=== PATIENT | male | born 1985 | race Caucasian/White ===

== ENCOUNTER 2020-07-20 18:49 | Inpatient (IN) | payer OTHER ==
[~2020-07-20 18:49] MED LIST: Iopamidol-370 76% 500 ML 1 ML ONE
[2020-07-20] MEDS ORDERED: Ondansetron PF 4 MG/2 ML Vial ONE (19:06)
[2020-07-20] MEDS ORDERED: Fentanyl 100 MCG/2 ML VIAL ONE ×2 (19:06→19:46)
[2020-07-20 19:18] LABS: #Basophils 0.1 thou/uL (0.0-0.2); #Eosinphils 0.3 thou/uL (0.0-0.7); #Lymphocytes 2.8 thou/uL (1.20-3.40); #Monocytes 1.1 thou/uL (0.11-0.59); #Neutrophils 14.4 thou/uL (1.40-6.50); %Basophils 0.4 % (0.0-1.0); %Eosinophils 1.8 % (0.0-10.0); %Lymphocytes 14.8 % (21.0-51.0); %Monocytes 5.9 % (0.0-10.0); %Neutrophils 77.1 % (42.0-75.0); Hemoglobin 17.5 g/dL (14.0-18.0); Mean Corpuscular HGB CONC 35.6 g/dL (32.0-36.0); Mean Corpuscular Hemoglobin 32.9 pg (27.0-31.0); Mean Corpuscular Volume 92.5 fL (78.0-98.0); Mean Platelet Volume 7.7 fL (7.4-10.4); Platelet Count 293 thou/uL (130-400); RBC Distribution Width 11.2 % (11.5-14.5); Red Blood Cell (RBC) Count 5.33 mill/uL (4.70-6.10); White Blood Cell (WBC) Count 18.7 thou/uL (4.8-10.8)
--- NOTE | 2020-07-20 19:33 | CT ---
CT Brain WO Con History: Reason For Study Comparison: CT brain 2016 Findings: No acute hemorrhage or infarct. No midline shift or mass effect. Ventricular size and extra -axial CSF spaces are normal. Mild mucosal thickening of the maxillary sinuses. Impression: No acute intracranial abnormality.
[2020-07-20 19:34] LABS: ALT (SGPT) 29 U/L (8-55); AST (SGOT) 36 U/L (5-34); Albumin 4.3 g/dL (3.5-5.0); Alcohol 204 mg/dL (Less than 10); Alkaline Phosphatase 64 U/L (40-110); Anion Gap 16 mmol/L (10-20); BUN (Urea Nitrogen) 8 mg/dL (8.9-20.6); Bilirubin, Total 0.4 mg/dL (0.2-1.2); Calc. Creatinine Clearance 0 mL/min (70-130); Calcium 8.7 mg/dL (7.8-10.44); Carbon Dioxide 21 mmol/L (22-29); Chloride 106 mmol/L (98-107); Estimated GFR-MDRD 76; Glucose 127 mg/dL (70-105); Potassium 5.4 mmol/L (3.5-5.1); Protein, Total 7.3 g/dL (6.0-8.3); Sodium 138 mmol/L (136-145)
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
--- NOTE | 2020-07-20 20:09 | RAD ---
XR Knee Lt 4 View STANDARD History: Injury Comparison: None. Findings: Deep anteromedial laceration of the infrapatellar soft tissues with possible extension into the patellar tendon. Small joint effusion. Punctate radiopaque debris along the laceration. Concern for osteochondral injury of the lateral femoral condyle. Impression: 1. Concern for a osteochondral injury lateral femoral condyle. 2. Laceration of the anteromedial soft tissues with concern for possible patellar tendon involvement. There is also a punctate radiopaque debris along the laceration. 3. Small joint effusion.
[2020-07-20 20:16] LABS: INR-International Normal Ratio 0.9; Prothrombin Time 12.8 sec (12.0-14.7)
[2020-07-20 20:17] LABS: PTT 19.1 sec (22.9-36.1)
[2020-07-20] MEDS ORDERED: Lidocaine 1% w/Epinephrine 1:100K 20 ML VIAL ONE (20:56)
[2020-07-20 21:11] LABS: Bilirubin Negative (Negative); Blood, Urine Negative (Negative); Clarity Clear (Clear); Glucose, Urine (Dipstick) Normal (Negative); Ketone, Urine Negative (Negative); Leukocyte Negative Leu/uL (Negative); Nitrite Negative (Negative); Protein, Urine (Dipstick) Negative (Neg-Trace); Specific Gravity, Urine 1.028 (1.002-1.036); Urobilinogen Normal mg/dL (Less than 2); pH, Urine 5.5 (5.0-9.0)
[2020-07-20] MEDS ORDERED: Dextrose 50% Abboject 50 ML SYRINGE SLOW IVP PRN (21:11)
[2020-07-20] MEDS ORDERED: Ondansetron PF 4 MG/2 ML Vial IVP PRN (21:11)
[2020-07-20] MEDS ORDERED: Dextrose 5% in Water 1,000 ML IV PRN (21:11)
[2020-07-20] MEDS ORDERED: traMADol HCl 50 MG TAB PO PRN (21:16)
[2020-07-20] MEDS ORDERED: Ibuprofen 600 MG TAB PO PRN (21:16)
[2020-07-20] MEDS ORDERED: Cyclobenzaprine 10 MG TAB PO PRN (21:16)
[2020-07-20 21:30] LABS: Medtox Reader # READER 4; THC/Cannabinoid Screen Detected (NotDetected)
[2020-07-20 21:31] LABS: Amphetamine Detected (NotDetected); Barbiturates Screen Not Detected (NotDetected); Benzodiazepine Screen Not Detected (NotDetected); Cocaine Metabolite Screen Not Detected (NotDetected); Medtox Control Line Valid? VALID (VALID); Methadone Not Detected (NotDetected); Methamphetamine Detected (NotDetected); Opiate Screen Not Detected (NotDetected); Oxycodone Screen Not Detected (NotDetected); Phencyclidine (PCP) Not Detected (NotDetected); Tricyclic Screen Not Detected (NotDetected)
[2020-07-20 22:33] LABS: Lactic Acid 3.5 mmol/L (0.5-2.2)
[2020-07-20 22:37] LABS: CK (CPK) 372 U/L (30-200); Magnesium 1.7 mg/dL (1.6-2.6)
[2020-07-20 22:44] LABS: Phosphorus 1.7 mg/dL (2.3-4.7)
[2020-07-20 23:00] VITALS: BMI 25.9
[2020-07-20] MEDS ORDERED: Sodium Phosphate 30 MMOL in Sodium Chloride 0.9% 250 ML 250 ML IVPB SCH (23:00)
[2020-07-20] MEDS ORDERED: Sodium Chloride 0.9% 1,000 ML IV SCH (23:00)
[2020-07-20] MEDS: Sodium Chloride 0.9% 1,000 ML IV SCH (23:10)
[2020-07-20] MEDS: Oxazepam 10 MG CAP PO SCH (23:10)
[2020-07-20] MEDS: traMADol HCl 50 MG TAB PO SCH (23:11)
[2020-07-20] MEDS: Gabapentin 300 MG CAP PO SCH (23:11)
[2020-07-20] MEDS: Acetaminophen 500 MG TAB PO SCH (23:11)
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
[2020-07-21] MEDS: Gabapentin 300 MG CAP PO SCH ×2 (05:13→14:52)
[2020-07-21] MEDS: Sodium Chloride 0.9% 1,000 ML IV SCH ×2 (05:13→15:04)
[2020-07-21] MEDS: traMADol HCl 50 MG TAB PO SCH ×3 (05:13→17:33)
[2020-07-21] MEDS: Oxazepam 10 MG CAP PO SCH ×2 (05:13→14:52)
[2020-07-21] MEDS: Acetaminophen 500 MG TAB PO SCH ×3 (05:13→17:33)
[2020-07-21 05:39] LABS: Hemoglobin 17.3 g/dL (14.0-18.0); Mean Corpuscular HGB CONC 33.7 g/dL (32.0-36.0); Mean Corpuscular Hemoglobin 31.7 pg (27.0-31.0); Mean Corpuscular Volume 93.9 fL (78.0-98.0); Mean Platelet Volume 7.8 fL (7.4-10.4); Platelet Count 283 thou/uL (130-400); RBC Distribution Width 11.2 % (11.5-14.5); Red Blood Cell (RBC) Count 5.46 mill/uL (4.70-6.10); White Blood Cell (WBC) Count 14.2 thou/uL (4.8-10.8)
[2020-07-21 05:48] LABS: Lactic Acid 1.6 mmol/L (0.5-2.2)
[2020-07-21 06:07] LABS: Anion Gap 19 mmol/L (10-20); BUN (Urea Nitrogen) 7 mg/dL (8.9-20.6); CK (CPK) 402 U/L (30-200); Calc. Creatinine Clearance 142 mL/min (70-130); Calcium 8.2 mg/dL (7.8-10.44); Carbon Dioxide 16 mmol/L (22-29); Chloride 105 mmol/L (98-107); Estimated GFR-MDRD Greater than 90; Glucose 107 mg/dL (70-105); Magnesium 1.5 mg/dL (1.6-2.6); Phosphorus 5.2 mg/dL (2.3-4.7); Potassium 4.1 mmol/L (3.5-5.1); Sodium 136 mmol/L (136-145)
[2020-07-21] MEDS: Ibuprofen 600 MG TAB PO SCH ×2 (08:52→15:04)
[2020-07-21] MEDS ORDERED: Thiamine 100 MG TAB PO SCH (09:00)
[2020-07-21] MEDS ORDERED: Multivitamin W/ Minerals 1 TAB PO SCH (09:00)
[2020-07-21] MEDS ORDERED: Senokot S 8.6-50 MG TAB PO SCH (09:00)
[2020-07-21] MEDS ORDERED: Famotidine 20 MG TAB PO SCH (09:00)
[2020-07-21] MEDS ORDERED: Polyethylene Glycol 3350 17 GM Packet PO SCH (09:00)
[2020-07-21] MEDS ORDERED: Bacitracin 1 PK TOP SCH (09:00)
[2020-07-21] MEDS ORDERED: Folic Acid 1 MG TAB PO SCH (09:00)
[2020-07-21] MEDS: Bacitracin Zinc Ointment 30 gm TUBE TOP SCH ×2 (09:41→14:51)
[2020-07-21] MEDS: Magnesium 2 GM/50 ML 2 GM in Premix Bag 1 BAG IVPB SCH ×2 (09:41→11:10)
[2020-07-21 11:36] LABS: SARS-CoV-2 MS2 Positive; SARS-CoV-2 N Gene Negative; SARS-CoV-2 S Gene Negative; SARS-CoV-2 by NAA Not Detected (NotDetected); SARS-CoV-2 orf1ab Negative
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
[2020-07-21 20:15] VITALS: BP 149/79; TEMP 98.3
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
== END 2020-07-21 21:05 | disposition home or self-care (01) | DRG 565 ==
LOC: ERS 18:49 → SURG B 21:16
PROVIDERS: ADMIT Surgery; ATTEND Surgery
PROC: 0HQKXZZ Repair Right Lower Leg Skin, External Approach (ICD-10-PCS; principal; 2020-07-20)
PROC: 0HQEXZZ Repair Left Lower Arm Skin, External Approach (ICD-10-PCS; 2020-07-20)
PROC: 0HQBXZZ Repair Right Upper Arm Skin, External Approach (ICD-10-PCS; 2020-07-20)
DX: S22.20XA Unspecified fracture of sternum, initial encounter for closed fracture (principal); E87.2 Acidosis; S42.131A Displaced fracture of coracoid process, right shoulder, initial encounter for closed fracture; S81.011A Laceration without foreign body, right knee, initial encounter; S41.011A Laceration without foreign body of right shoulder, initial encounter; S51.812A Laceration without foreign body of left forearm, initial encounter; E87.5 Hyperkalemia; F10.129 Alcohol abuse with intoxication, unspecified; Z20.828 Contact with and (suspected) exposure to other viral communicable diseases; F15.10 Other stimulant abuse, uncomplicated; Y90.7 Blood alcohol level of 200-239 mg/100 ml; I10 Essential (primary) hypertension; F12.10 Cannabis abuse, uncomplicated; S80.812A Abrasion, left lower leg, initial encounter; S80.811A Abrasion, right lower leg, initial encounter; S40.812A Abrasion of left upper arm, initial encounter; S40.811A Abrasion of right upper arm, initial encounter; S20.311A Abrasion of right front wall of thorax, initial encounter; V29.9XXA Motorcycle rider (driver) (passenger) injured in unspecified traffic accident, initial encounter; Y92.410 Unspecified street and highway as the place of occurrence of the external cause; Z90.49 Acquired absence of other specified parts of digestive tract; Z88.5 Allergy status to narcotic agent
CPT/HCPCS: 12004; 36415; 70450; 71260; 72125; 74177; 80048; 80053; 80306; 80307; 81003; 82550; 83605; 83735; 84100; 85025; 85027; 85610; 85730; 87635; 96365; 96375; 96376; G0390; J0690; J2405; J3010; J3475; J7050; Q9967; U0003

== ENCOUNTER 2020-08-01 10:03 | Emergency (ER) | payer OTHER ==
[2020-08-01] MEDS ORDERED: HYDROcodone/Acetaminophen 5/325 mg Tablet ONE (10:58)
[2020-08-01] MEDS ORDERED: Ketorolac Tromethamine 30 MG/ML VIAL ONE (10:59)
--- NOTE | 2020-08-01 11:24 | RAD ---
EXAM: 3 views of the right hand COMPARISON: None HISTORY: Thumb pain FINDINGS: 3 views of the hand shows a fracture of the proximal diaphysis of the thumb metacarpal. No dislocation is seen. No degenerative changes are seen. No soft tissue swelling is present. IMPRESSION: Thumb metacarpal fracture
[2020-08-01] MEDS ORDERED: Bacitracin 1 PK ONE (12:19)
== END 2020-08-01 12:56 | disposition home or self-care (01) ==
LOC: ERS 10:03
DX: S62.511A Displaced fracture of proximal phalanx of right thumb, initial encounter for closed fracture (principal); S81.001D Unspecified open wound, right knee, subsequent encounter; S51.002D Unspecified open wound of left elbow, subsequent encounter; S21.211D Laceration without foreign body of right back wall of thorax without penetration into thoracic cavity, subsequent encounter; L08.9 Local infection of the skin and subcutaneous tissue, unspecified; E11.9 Type 2 diabetes mellitus without complications; I10 Essential (primary) hypertension; F41.9 Anxiety disorder, unspecified; F31.9 Bipolar disorder, unspecified; F20.9 Schizophrenia, unspecified; F17.210 Nicotine dependence, cigarettes, uncomplicated; V89.2XXD Person injured in unspecified motor-vehicle accident, traffic, subsequent encounter
CPT/HCPCS: 29125; 96372; J1885